=== PATIENT | male | born 1950 | race Hispanic/Latino ===

== ENCOUNTER 2022-10-13 07:22 | Emergency (ER) | payer MEDICARE ==
[~2022-10-13] VITALS: Ht 165.1 cm; Wt 75.3 kg
[2022-10-13] MEDS ORDERED: AMOX500C2 PO (07:45)
[2022-10-13] MEDS ORDERED: CLIN-141 PO (08:16)
[2022-10-13] MEDS ORDERED: ACETAMINOPHEN 500 MG TABLET ONE (08:16)
[2022-10-13 08:29] VITALS: BP 144/78
[2022-10-13] MEDS ORDERED: ACETAMINOPHEN 500 MG TABLET PO ONE (08:30)
[2022-10-14] MEDS ORDERED: ACET-2079 PO ×2 (17:04→17:46)
== END 2022-10-13 08:34 | disposition home or self-care (01) ==
LOC: EDH 07:22
DX: K04.7 Periapical abscess without sinus (principal); E78.00 Pure hypercholesterolemia, unspecified; I10 Essential (primary) hypertension; Z79.899 Other long term (current) drug therapy

== ENCOUNTER 2022-10-14 12:37 | Emergency (ER) | payer MEDICARE ==
[~2022-10-14] VITALS: Ht 154.9 cm; Wt 68.0 kg
[~2022-10-14 12:37] MED LIST: AMOX500C2 PO; CLIN-141 PO
[2022-10-14 13:36] LABS: BASOPHILS % (AUTO) 0.4 % (0.0-5.0); EOSINOPHILS % (AUTO) 0.4 % (0.0-8.0); LYMPHOCYTES % (AUTO) 6.3 % (21.0-51.0); MEAN CORPUSCULAR HGB CONC 33.6 g/dL (32.0-36.0); MEAN CORPUSCULAR VOLUME 89.4 fL (79-99); MONOCYTES % (AUTO) 10.2 % (3.0-13.0); NEUTROPHILS % (AUTO) 82.3 % (40.0-77.0); PLATELET COUNT (AUTO) 153 K/uL (130-400); RED CELL DISTRIBUTION WIDTH 13.2 % (11.0-15.5); WHITE BLOOD COUNT (AUTO) 11.3 K/uL (4.8-10.8)
[2022-10-14 13:48] LABS: CREATININE 0.8 mg/dL (0.5-1.5); POTASSIUM 4.9 mmol/L (3.5-5.1)
[2022-10-14 13:53] LABS: ALBUMIN 4.1 g/dL (3.5-5.0); TOTAL PROTEIN, SERUM 7.9 g/dL (6.0-8.3)
[2022-10-14] MEDS ORDERED: UNASYN 3GM VIAL IV ONE (15:00)
[2022-10-14] MEDS ORDERED: AMP/SULBAC 3GM+NS 100ML 100 ML IV ONE (15:00)
[2022-10-14] MEDS ORDERED: IOHEXOL-350 50ML VIAL IV ONE (15:00)
[2022-10-14] MEDS ORDERED: HYDROCODONE/ACETAMINOPHEN 5/325 MG TAB PO ONE (16:00)
[2022-10-14] MEDS ORDERED: ACET-2079 PO ×2 (17:04→17:46)
[2022-10-14 18:03] VITALS: BP 112/62
== END 2022-10-14 18:04 | disposition home or self-care (01) ==
LOC: EDH 12:37
DX: K04.7 Periapical abscess without sinus (principal); I10 Essential (primary) hypertension; E78.00 Pure hypercholesterolemia, unspecified
CPT/HCPCS: 99285; 96365; 70487; 80053; 85025; 87040 ×2; 83605; 36415; Q9967; J0295

== ENCOUNTER → 2025-05-12 | Outpatient (CLI) | payer OTHER ==
[~2025-05-12] MED LIST changes: +ACET-2079 PO
--- NOTE | 2025-05-12 22:48 | HMCIMG ---
EXAM Complete abdominal ultrasound. CLINICAL HISTORY Thrombocytopenia. COMPARISON None. TECHNIQUE Beltran-scale ultrasound evaluation of the liver, gallbladder, biliary tree, pancreas, spleen, kidneys, abdominal aorta, and inferior vena cava was performed. FINDINGS LIVER The liver is normal in size measures 17 cm and demonstrates normal echogenicity and homogeneous echotexture. No focal hepatic lesion is identified. GALLBLADDER AND BILIARY TREE The gallbladder is adequately distended with a normal wall thickness measuring approximately 2 mm. No gallstones or pericholecystic fluid are identified. The common bile duct measures approximately 4 mm and is within normal limits. No intrahepatic biliary ductal dilatation is present. PANCREAS The pancreas is partially visualized due to overlying bowel gas. The visualized portions appear unremarkable without focal mass or ductal dilatation. SPLEEN The spleen measures approximately 12.3 x 2.9 x 3.6 cm, within normal limits for size. Echogenicity is normal and no focal splenic lesion is identified. KIDNEYS The right kidney measures approximately 10.9 x 5.7 x 5.9 cm with preserved cortical thickness and normal echogenicity. No hydronephrosis or renal mass is identified. The left kidney measures approximately 10.4 x 6.1 x 5.4 cm with preserved cortical thickness and normal echogenicity. No hydronephrosis or renal mass is identified. ABDOMINAL AORTA AND IVC The visualized abdominal aorta is normal in caliber. The inferior vena cava is patent. PERITONEAL CAVITY No free intraperitoneal fluid or ascites is identified. IMPRESSION * Normal sonographic appearance of the liver and spleen without splenomegaly. * No acute abdominal abnormality identified on ultrasound. * No sonographic evidence of ascites. * In accordance with ACR Appropriateness Criteria, no additional imaging is recommended at this time. If thrombocytopenia persists or worsens or if there is ongoing clinical concern, further evaluation with contrast-enhanced CT or MRI of the abdomen may be considered based on clinical judgment. /Wilder
== END | disposition home or self-care (01) ==
LOC: RAH 08:48
PROVIDERS: ATTEND Internal Medicine Medical Oncology
DX: D69.6 Thrombocytopenia, unspecified (principal); K82.8 Other specified diseases of gallbladder; Z79.899 Other long term (current) drug therapy
CPT/HCPCS: 76700